=== PATIENT | female | born 1975 | race Caucasian/White ===

== ENCOUNTER 2020-11-25 13:26 | Outpatient (CLI) | payer OTHER ==
[2020-11-25] MEDS ORDERED: Lidocaine 1% PF 10 ML AMP ONE (14:00)
[2020-11-25] MEDS ORDERED: Gadobenate Dimeglumine 529 MG/1 ML (20ML VIAL) ONE (14:00)
[2020-11-25] MEDS ORDERED: Iopamidol 300 61% 50 ML VIAL FS ONE (14:00)
[2020-11-25] MEDS ORDERED: EPINEPHrine 1 MG/ML AMP ONE (14:00)
== END 2020-11-25 13:27 | disposition home or self-care (01) ==
LOC: RAD 13:26
PROVIDERS: ATTEND Orthopaedic Surgery
DX: M25.551 Pain in right hip (principal); M25.851 Other specified joint disorders, right hip
CPT/HCPCS: 27093; A9577; J0171; J2001; Q9967

== ENCOUNTER 2021-02-23 14:39 | Outpatient (CLI) | payer OTHER ==
[2021-02-23 15:47] LABS: Bilirubin Neg (Negative); Blood, Urine Negative (Negative); Clarity Clear (Clear); Glucose, Urine (Dipstick) Normal (Negative); Ketone, Urine 5 mg/dL (Negative); Leukocyte 25 (Negative); Nitrite Negative (Negative); Protein, Urine (Dipstick) Negative (Neg-Trace); Specific Gravity, Urine 1.015 (1.002-1.036); pH, Urine 6.5 (5.0-9.0)
[2021-02-23 15:51] LABS: #Eosinphils 0.2 10x3/uL (0.0-0.5); #Monocytes 0.4 10x3/uL (0.0-1.1); #Neutrophils 5.4 10x3/uL (1.5-8.4); %Basophils 0.4 % (0.0-2.0); %Eosinophils 2.4 % (0.0-6.0); %Lymphocytes 27.4 % (18.0-47.0); %Monocytes 5.2 % (0.0-10.0); Hemoglobin 13.5 g/dL (12.0-15.5); Mean Corpuscular HGB CONC 33.6 g/dL (32.0-36.0); Mean Corpuscular Hemoglobin 30.4 pg (27.0-33.0); Mean Corpuscular Volume 90.5 fl (81.6-98.3); Mean Platelet Volume 10.4 fl (7.4-10.4); Platelet Count 288 10x3/uL (150-450); Red Blood Cell (RBC) Count 4.44 10x6/uL (3.90-5.03); White Blood Cell (WBC) Count 8.4 10x3/uL (3.5-10.5)
[2021-02-23 16:05] LABS: Anion Gap 13 mmol/L (10-20); BUN (Urea Nitrogen) 12 mg/dL (7.0-18.7); Calc. Creatinine Clearance 0 mL/min (70-130); Calcium 9.4 mg/dL (7.8-10.44); Carbon Dioxide 25 mmol/L (22-29); Chloride 104 mmol/L (98-107); Glucose 120 mg/dL (70-105); Potassium 3.9 mmol/L (3.5-5.1); Sodium 138 mmol/L (136-145)
[2021-02-23 16:14] LABS: INR-International Normal Ratio 0.9; Prothrombin Time 10.5 sec (9.5-12.1)
[2021-02-23 16:16] LABS: Bacteria/HPF None Seen HPF (None Seen); RBC/HPF None Seen HPF (0-3); Squamous Epithelial 0-3 HPF (0-3); WBC/HPF 0-3 HPF (0-3)
[2021-02-23 16:18] LABS: BHCG - Serum Negative (NEGATIVE); Pregs Control Background? CLEAR/WHITE (CLR/WHITE); Pregs Control Bar Appear? YES (CONTROL BAR)
[2021-02-24 00:37] LABS: SARS-CoV-2 PCR by NAA Not Detected (NotDetected)
== END 2021-02-23 14:40 | disposition home or self-care (01) ==
LOC: LABBT 14:39
PROVIDERS: ATTEND Orthopaedic Surgery
DX: Z01.812 Encounter for preprocedural laboratory examination (principal); M16.51 Unilateral post-traumatic osteoarthritis, right hip; Z20.822 Contact with and (suspected) exposure to COVID-19
CPT/HCPCS: 80048; 81001; 84703; 85025; 85610; 87081; U0003; U0005

== ENCOUNTER 2021-02-28 06:19 | Inpatient (IN) | payer OTHER ==
[2021-02-25 09:56] VITALS: BMI 28.0
[2021-02-28] MEDS ORDERED: Vancomycin HCl 1.5 GM in Sodium Chloride 0.9% 250 ML 300 ML IVPB SCH (07:45)
[2021-02-28] MEDS ORDERED: Sodium Chloride 0.9% 100 ML ONE (08:26)
[2021-02-28] MEDS ORDERED: Tranexamic Acid 1,000 MG/10 ML VIAL ONE (08:26)
[2021-02-28] MEDS ORDERED: Fentanyl 100 MCG/2 ML VIAL ONE ×6 (08:27→11:54)
[2021-02-28] MEDS ORDERED: Midazolam HCl 2 mg/2 ml Vial ONE (08:27)
[2021-02-28] MEDS ORDERED: diphenhydrAMINE 25 MG CAP PO PRN ×2 (08:52→11:00)
[2021-02-28] MEDS ORDERED: Acetaminophen 325 MG TAB PO PRN (08:52)
[2021-02-28] MEDS ORDERED: Zolpidem Tartrate 5 MG TAB PO PRN ×2 (08:52→11:00)
[2021-02-28] MEDS ORDERED: Promethazine HCl 25 MG/ML VIAL IM PRN ×3 (08:52→11:00)
[2021-02-28] MEDS ORDERED: Ondansetron PF 4 MG/2 ML Vial IVP PRN ×2 (08:52→11:00)
[2021-02-28] MEDS ORDERED: HYDROcodone/Acetaminophen 10/325 mg Tablet PO PRN ×2 (08:52)
[2021-02-28] MEDS ORDERED: Fentanyl 100 MCG/2 ML VIAL SLOW IVP PRN ×2 (08:52)
[2021-02-28] MEDS ORDERED: Glycopyrrolate 0.2 MG/ML 5 ML SYRINGE ONE (09:09)
[2021-02-28] MEDS ORDERED: PROPOFOL 200 MG/20 ML VIAL ONE (09:09)
[2021-02-28] MEDS ORDERED: Dexamethasone 20 MG/5 ML VIAL ONE (09:09)
[2021-02-28] MEDS ORDERED: Lidocaine 1% PF 5 ML VIAL ONE (09:09)
[2021-02-28] MEDS ORDERED: Lidocaine 1.5% w/Epi 1:200K 30 ML VIAL (Epid Use) ONE (09:09)
[2021-02-28] MEDS ORDERED: Rocuronium Bromide 10 MG/ML (10ML VIAL) ONE (09:09)
[2021-02-28] MEDS ORDERED: Ondansetron PF 4 MG/2 ML Vial ONE (09:09)
[2021-02-28] MEDS ORDERED: Promethazine HCl 25 MG/ML VIAL IVPB PRN (10:40)
[2021-02-28] MEDS ORDERED: Ondansetron HCl/PF 4 MG/2 ML Vial IVP PRN ×2 (10:40→11:30)
[2021-02-28] MEDS ORDERED: Bupivacaine 0.5% 10 ML VIAL ONE (10:45)
[2021-02-28] MEDS ORDERED: Acetaminophen 500 MG TAB PO PRN (10:51)
[2021-02-28] MEDS ORDERED: HYDROmorphone 0.5 MG/0.5 ML SYRINGE ONE (10:58)
[2021-02-28] MEDS ORDERED: traMADol HCl 50 MG TAB PO PRN (11:00)
[2021-02-28] MEDS ORDERED: diphenhydrAMINE 50 MG/ML VIAL IM PRN (11:00)
[2021-02-28] MEDS ORDERED: HYDROcodone/Acetaminophen 5/325 mg Tablet PO PRN (11:00)
[2021-02-28] MEDS ORDERED: diphenhydrAMINE 50 MG/ML VIAL IVP PRN (11:00)
[2021-02-28] MEDS ORDERED: Bupivacaine 0.25% 10 ML VIAL EPIDURAL PRN (11:00)
[2021-02-28] MEDS ORDERED: Hydrocerin (Eucerin) Cream 120 gm Jar TOP PRN (11:00)
[2021-02-28] MEDS ORDERED: Naloxone HCl 0.4 mg/ml Vial IV PRN (11:00)
[2021-02-28] MEDS ORDERED: Naloxone HCl 0.4 mg/ml Vial IVP PRN (11:00)
[2021-02-28] MEDS ORDERED: Promethazine HCl 25 MG SUPP PR PRN (11:00)
[2021-02-28] MEDS ORDERED: Non-Formulary Medication 1 EACH PO PRN (11:17)
[2021-02-28] MEDS ORDERED: Promethazine HCl 25 MG/ML VIAL IM/IV PRN (11:30)
[2021-02-28] MEDS ORDERED: HYDROmorphone 2 MG/ML VIAL SLOW IVP PRN (11:30)
[2021-02-28] MEDS ORDERED: Ketorolac Tromethamine 30 MG/ML VIAL ONE (11:39)
[2021-02-28] MEDS ORDERED: Ketorolac Tromethamine 30 MG/ML VIAL IM SCH (14:00)
[2021-02-28] MEDS ORDERED: Promethazine HCl 25 MG/ML VIAL ONE (14:10)
[2021-02-28] MEDS ORDERED: Scopolamine 1.5 mg/72 hour Patch ONE (16:27)
[2021-02-28] MEDS: Sodium Chloride 0.9% 1,000 ML IV SCH ×3 (18:03→23:55)
[2021-02-28] MEDS: Aspirin 81 mg Enteric Coated Tablet PO SCH ×2 (18:03→21:14)
[2021-02-28] MEDS: CEFAZOLIN 2 GM in Premix Bag 1 BAG IVPB SCH ×2 (18:07→23:54)
[2021-02-28] MEDS: Ketorolac Tromethamine 30 MG/ML VIAL IVP SCH ×3 (18:13→23:54)
[2021-02-28] MEDS: HYDROcodone/Acetaminophen 5/325 mg Tablet PO PRN (21:17)
[2021-03-01] MEDS: Fentanyl 5 mcg/Bup 0.075% Cadd 100 ML EPIDURAL SCH ×2 (01:33→16:32)
[2021-03-01 05:52] LABS: Hemoglobin 10.8 g/dL (12.0-16.0); Mean Corpuscular HGB CONC 33.9 g/dL (32.0-36.0); Mean Corpuscular Hemoglobin 31.8 pg (27.0-31.0); Mean Corpuscular Volume 93.8 fL (78.0-98.0); Mean Platelet Volume 8.1 fL (7.4-10.4); Platelet Count 219 thou/uL (130-400); RBC Distribution Width 11.3 % (11.5-14.5); Red Blood Cell (RBC) Count 3.39 mill/uL (4.20-5.40); White Blood Cell (WBC) Count 11.7 thou/uL (4.8-10.8)
[2021-03-01] MEDS: Sodium Chloride 0.9% 1,000 ML IV SCH ×2 (06:03→16:40)
[2021-03-01] MEDS: Ketorolac Tromethamine 30 MG/ML VIAL IVP SCH ×4 (06:04→23:24)
[2021-03-01] MEDS: Ferrous Gluconate 324 MG TAB PO SCH ×2 (08:59→17:17)
[2021-03-01] MEDS: Senokot S 8.6-50 MG TAB PO SCH ×2 (08:59→21:11)
[2021-03-01] MEDS: Multivitamin W/ Minerals 1 TAB PO SCH (08:59)
[2021-03-01] MEDS: Aspirin 81 mg Enteric Coated Tablet PO SCH ×2 (09:00→21:11)
[2021-03-01] MEDS: HYDROcodone/Acetaminophen 5/325 mg Tablet PO PRN ×4 (09:26→21:11)
[2021-03-01] MEDS: traMADol HCl 50 MG TAB PO PRN (16:40)
[2021-03-02] MEDS: Sodium Chloride 0.9% 1,000 ML IV SCH ×3 (00:08→23:12)
[2021-03-02] MEDS: HYDROcodone/Acetaminophen 5/325 mg Tablet PO PRN ×5 (02:03→20:17)
[2021-03-02] MEDS: Fentanyl 5 mcg/Bup 0.075% Cadd 100 ML EPIDURAL SCH ×2 (05:30→18:25)
[2021-03-02] MEDS: Ketorolac Tromethamine 30 MG/ML VIAL IVP SCH (05:33)
[2021-03-02] MEDS: Multivitamin W/ Minerals 1 TAB PO SCH (09:07)
[2021-03-02] MEDS: Senokot S 8.6-50 MG TAB PO SCH ×2 (09:07→20:18)
[2021-03-02] MEDS: Aspirin 81 mg Enteric Coated Tablet PO SCH ×2 (09:07→20:19)
[2021-03-02] MEDS: Ferrous Gluconate 324 MG TAB PO SCH ×2 (09:07→18:25)
[2021-03-02] MEDS: traMADol HCl 50 MG TAB PO PRN (23:22)
[2021-03-03] MEDS: HYDROcodone/Acetaminophen 5/325 mg Tablet PO PRN ×3 (01:34→10:05)
[2021-03-03] MEDS: Sodium Chloride 0.9% 1,000 ML IV SCH (07:18)
[2021-03-03 07:45] VITALS: BP 115/69; TEMP 98.6
[2021-03-03] MEDS: Multivitamin W/ Minerals 1 TAB PO SCH ×2 (08:13→08:14)
[2021-03-03] MEDS: Senokot S 8.6-50 MG TAB PO SCH (08:13)
[2021-03-03] MEDS: Ferrous Gluconate 324 MG TAB PO SCH (08:14)
[2021-03-03] MEDS: Aspirin 81 mg Enteric Coated Tablet PO SCH (08:14)
== END 2021-03-03 12:23 | disposition home or self-care (01) | DRG 470 ==
LOC: SDC 06:19 → SURG A 08:52 → EDSTATUS 14:30
PROVIDERS: ADMIT Orthopaedic Surgery; ATTEND Orthopaedic Surgery
PROC: 0SR9039 Replacement of Right Hip Joint with Ceramic Synthetic Substitute, Cemented, Open Approach (ICD-10-PCS; principal; 2021-02-28)
DX: M16.11 Unilateral primary osteoarthritis, right hip (principal); Z98.890 Other specified postprocedural states
CPT/HCPCS: 36415; 85027; J0690; J1100; J1170; J1885; J2001; J2250; J2405; J2550; J2704; J3010; J3370; J3490; J7050